=== PATIENT | male | born 1995 | race Caucasian/White ===

== ENCOUNTER 2021-09-15 10:48 | Emergency (ER) | payer OTHER, SELFPAY ==
--- NOTE | ~2021-09-15 | XR_ITS ---
XR chest 2V DATE: 09/15/2021 12:53 INDICATION: Dyspnea TECHNIQUE: PA and lateral views COMPARISON: None FINDINGS: Normal heart size. No hilar or mediastinal enlargement. No pulmonary infiltrate or consolid ation, pleural effusion or pulmonary vascular congestion or pneumothorax. Included skeletal structure s are unremarkable. IMPRESSION: Negative Reviewed, dictated and finalized at location A. IMPRESSION: Negative
[2021-09-15 10:56] VITALS: BP 118/53; PULSE 92; RESP 14; TEMP 36.9; O2SAT 99
[2021-09-15 12:44] VITALS: BP 113/68; PULSE 90; RESP 19; O2SAT 100
--- NOTE | 2021-09-15 12:46 | ECG_ITS ---
Measurements Intervals [place] Rate: 73 P: 66 DE: 148 QRS: 80 QRSD: 105 T: 50 QT: 341 QTc: 377 Interpretive Statements SINUS RHYTHM WITH SINUS ARRHYTHMIA MINOR RV CONDUCTION ABNORMALITY ST ELEVATION, EARLY REPOLARIZATION NO PREVIOUS ECG AVAILABLE FOR COMPARISON Electronically Signed On 09-16-2021 8:17:20 CDT by Zheng Christianson M.D.
--- NOTE | 2021-09-15 13:01 | ED.GENADULT ---
HPI - General Adult General Chief complaint: Shortness of Breath/Dyspnea Stated complaint: difficulty breathing, chest pain Time Seen by Provider: 09/15/21 12:42 History of Present Illness HPI narrative: 25-year-old healthy, well-appearing male who presents for reproducible chest pain that is felt only with deep breathing or movement. Patient is currently training for a triathlon and has not experienced any symptoms while exerting himself. 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 He has not taken any medication for the pain and symptom onset was this morning. Pain is felt in the anterior chest wall and with movement or deep breathing radiates to the teeth 6-8 paraspinal muscles on the left side. No shortness of breath, nausea, vomiting, diaphoresis. No family history of early cardiac . Related Data Allergies Allergy/AdvReac Type Severity Reaction Status Date / Time No Known Allergies Allergy Unverified 03/15/16 21:07 Review of Systems Review of Systems: CONSTITUTIONAL: Denies fever, chills, or sweats. EYES: Denies visual changes, redness, or discharge. ENT: Denies rhinorrhea, congestion, sore throat, or otalgia. CARDIOVASCULAR: Denies chest pain, palpitations, or edema. RESPIRATORY: Denies cough or dyspnea. GASTROINTESTINAL: Denies abdominal pain, nausea, vomiting, or diarrhea. GENITOURINARY: Denies dysuria or hematuria. SKIN: Denies rash or itching. MUSCULOSKELETAL: Denies back pain, joint pain, or myalgia. NEUROLOGIC: Denies headache, numbness, or weakness. PSYCHIATRIC: Denies anxiety or depression. Exam Narrative: GENERAL: Well-appearing, well-nourished, and in no acute distress. HEAD: Normocephalic, atraumatic. EYES: PERRLA and EOMI. ENT: Nares clear, no rhinorrhea or epistaxis. Mucous membranes moist. NECK: Supple. CHEST: Clear to auscultation. No respiratory distress. HEART: Regular rate and rhythm. No murmur heard. Normal peripheral pulses. ABDOMEN: Soft, nontender, nondistended, normal active bowel sounds. EXTREMITIES: Normal range of motion. No edema. SKIN: Warm, dry, no rash. NEURO: No focal deficits. Alert and oriented x3. PSYCH: Normal mood and affect. Course Vital Signs Vital signs: Vital Signs Temperature 98.5 F 09/15/21 10:56 Pulse Rate 92 09/15/21 10:56 Respiratory Rate 14 09/15/21 10:56 Blood Pressure 118/53 L 09/15/21 10:56 Pulse Oximetry 99 09/15/21 10:56 Oxygen Delivery Room Air 09/15/21 10:56 Temperature 98.5 F 09/15/21 10:56 Pulse Rate 90 09/15/21 12:44 Respiratory Rate 19 09/15/21 12:44 Blood Pressure 113/68 09/15/21 12:44 Pulse Oximetry 100 09/15/21 12:44 Oxygen Delivery Room Air 09/15/21 10:56 Medical Decision Making MDM Narrative Medical decision making narrative: Healthy well-appearing, athletic 25-year-old male presents with reproducible chest pain that does not seem to have a cardiac etiology. This seems musculoskeletal in nature. Will give a dose of steroids and NSAID therapy here in the department and for home use. EKG with a sinus rhythm at 73 bpm SC interval 148, QRS duration of 105, QTc of 367 no ischemic changes. Normal early repull noted Musculoskeletal chest pain we will treat as such. Will give cardiology follow-up in an abundance of caution although this does not seem to be cardiac in nature. Vital Signs Vital Signs: Vital Signs Temperature 98.5 F 09/15/21 10:56 Pulse Rate 92 09/15/21 10:56 Respiratory Rate 14 09/15/21 10:56 Blood Pressure 118/53 L 09/15/21 10:56 Pulse Oximetry 99 09/15/21 10:56 Oxygen Delivery Room Air 09/15/21 10:56 Temperature 98.5 F 09/15/21 10:56 Pulse Rate 90 09/15/21 12:44 Respiratory Rate 19 09/15/21 12:44 Blood Pressure 113/68 09/15/21 12:44 Pulse Oximetry 100 09/15/21 12:44 Oxygen Delivery Room Air 09/15/21 10:56 Discharge Plan Discharge Clinical Impression: Costal c
[2021-09-15] MEDS: IBUPROFEN 400 MG TABLET 800 MG PO (13:14)
[2021-09-15] MEDS: DEXAMETHASONE 2 MG TABLET 10 MG PO (13:15)
[2021-09-15 13:31] VITALS: BP 114/66; PULSE 66; RESP 18; O2SAT 99
== END 2021-09-15 13:34 | disposition home or self-care (01) ==
PROVIDERS: Emergency Provider Emergency Medicine; PCP Family Medicine
DX: M94.0 Chondrocostal junction syndrome [Tietze] (principal); R94.31 Abnormal electrocardiogram [ECG] [EKG]
CPT/HCPCS: 71046; 93005; 99283; A9270; J8540

== ENCOUNTER 2023-11-04 20:04 | Emergency (ER) | payer OTHER, SELFPAY ==
--- NOTE | ~2023-11-04 | XR_ITS ---
EXAMINATION: XR ankle RT min 3V DATE: 11/04/2023 22:09 INDICATION: Right ankle pain post fall TECHNIQUE: Anteroposterior, oblique and lateral views of the right ankle were obtained. COMPARISON: None. FINDINGS: Alignment is normal. No fracture. Joint spaces are well maintained. No ankle joint effusion. Soft t issue swelling about the lateral malleolus and anterior to the distal tibia. IMPRESSION: 1. No acute osseous abnormality. Reviewed, dictated and finalized at location A.
[2023-11-04 21:09] VITALS: BP 140/76; PULSE 84; RESP 18; TEMP 36.8; O2SAT 98
--- NOTE | 2023-11-05 02:14 | ED.LOWEXIN ---
HPI - Extremity Injury (Lower) General Chief Complaint: Extremity Injury, Lower Stated Complaint: right foot injury Time Seen by Provider: 11/05/23 02:13 Source: patient Mode of arrival: ambulatory Limitations: no limitations History of Present Illness HPI Narrative: Patient is a 27-year-old male who presents to the ER with right ankle pain. He reports he tripped on something on the stairs and fell down on the twisting his ankle. Patient endorses right ankle redness, swelling, and pain. He reports he has sprained his ankle before, but this is more painful and he is unable to put pressure on it right now. Patient denies any other sign/symptoms of illness or trauma. Related Data Allergies Allergy/AdvReac Type Severity Reaction Status Date / Time No Known Allergies Allergy Unverified 11/04/23 21:14 Review of Systems Review of Systems: All systems reviewed & are unremarkable except as noted in HPI and below Exam Narrative: GENERAL: Well appearing, well-nourished, non-toxic, in no acute distress. NECK: Supple. No adenopathy, no masses. RESPIRATORY: Airway patent, respirations nonlabored. Clear to auscultation bilaterally, no rales, rhonchi, wheezing. CARDIOVASCULAR: Regular rate and rhythm without murmurs, rubs, or gallops. Peripheral pulses 2+ and equal bilaterally. ABDOMINAL: Soft, nontender, nondistended, no hepatosplenomegaly. Normoactive BS. MUSCULOSKELETAL: Moves all extremities. R ankle is swollen and red with 2+ pedal pulses bilaterally. SKIN: Warm, dry, normal color. No rashes. NEURO: A&O X3. Speech clear. Cranial nerves II-XII grossly intact. No ataxic movements. PSYCHIATRIC: Appropriate mood and affect. Normal interaction. Course Vital Signs Vital signs: Vital Signs Temperature 36.8 C 11/04/23 21: Pulse Rate 84 11/04/23 21:09 Respiratory Rate 18 11/04/23 21:09 Blood Pressure 140/76 11/04/23 21:09 Pulse Oximetry 98 11/04/23 21:09 Oxygen Delivery Room Air 11/04/23 21:09 Temperature 36.8 C 11/04/23 21: Pulse Rate 84 11/04/23 21:09 Respiratory Rate 18 11/04/23 21:09 Blood Pressure 140/76 11/04/23 21:09 Pulse Oximetry 98 11/04/23 21:09 Oxygen Delivery Room Air 11/04/23 21:09 MDM - Extremity Injury (Lower) MDM Narrative Medical decision making narrative: Patient is a 27-year-old male who presents to the ER with right ankle pain. He reports he tripped on something on the stairs and fell down on the twisting his ankle. Patient endorses right ankle redness, swelling, and pain. He reports he has sprained his ankle before, but this is more painful and he is unable to put pressure on it right now. Patient denies any other sign/symptoms of illness or trauma. Differential Diagnosis Differential diagnosis: Likely ankle sprain and strain and ankle fracture Imaging Data Attestation: I personally reviewed and interpreted this imaging study as follows: Radiologist's impression: Impressions Ankle X-Ray 11/04/23 23:22 IMPRESSION: 1. No acute osseous abnormality. Discharge Plan Discharge Clinical Impression: Ankle sprain and strain Patient Disposition: Home, Self-Care Condition: Stable Instructions: Antibiotic Form Additional Instructions: Please follow-up with orthopedics if the the swelling does not go down or you are unable to put pressure on your right ankle in a couple of days. Use your crutches to keep pressure off of your right foot at this time. Please keep your right ankle elevated. Keep the Sylvester wrap on the right ankle for support and ice the site for 20 minutes at a time. Follow-up with your primary care doctor if Orthopedics is not needed. Prescriptions: No Action ibuprofen 800 mg tablet 800 mg PO TID 7 Days Qty: 21 0RF prednisone 20 mg tablet 20 mg PO DAILY 5 Days Qty: 5 0RF Follow-up/Referrals: Abby,John Gibbons DO [Primary Care Provider] - Jn Long MD [Physician]
== END 2023-11-05 02:31 | disposition home or self-care (01) ==
LOC: ANHED 11-05 02:28
PROVIDERS: Emergency Provider Registered Nurse; PCP Family Medicine
DX: S93.401A Sprain of unspecified ligament of right ankle, initial encounter (principal); S96.911A Strain of unspecified muscle and tendon at ankle and foot level, right foot, initial encounter; W10.9XXA Fall (on) (from) unspecified stairs and steps, initial encounter; X50.9XXA Other and unspecified overexertion or strenuous movements or postures, initial encounter
CPT/HCPCS: 73610; 99283